=== PATIENT | male | born 1965 | race Caucasian/White ===

== ENCOUNTER → 2021-11-19 09:24 | Outpatient (BNVA) | payer OTHER, SELFPAY | PROVIDERS: Family Provider Family Medicine; PCP Family Medicine; Visit Provider Family Medicine | DX: E34.9 Endocrine disorder, unspecified (principal) | CPT/HCPCS: 82040; 84270; 84403 ==

== ENCOUNTER 2021-12-17 09:58 | Outpatient (CLI) | payer OTHER, SELFPAY ==
--- NOTE | 2021-12-17 10:15 | MR_ITS ---
WS: [id number] MRI RIGHT KNEE NONCONTRAST TECHNIQUE: Axial PD, coronal PD fat sat, coronal PD, sagittal PD, and sagittal PD fat-sat images obta ined. CLINICAL INFORMATION: knee pain s/p injury 2 years ago COMPARISON: None. FINDINGS: Distal quadriceps and patella tendon are intact. 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 This is worse involving the lateral patella facet. ACL and PCL are intact. Small amount increased signal involving the distal ACL fibers at the tibial insertion. Chronic thinning of the medial and l ateral meniscus. No acute appearing meniscal tears. Tiny suprapatellar effusion. Grade II chondromala dale medial and lateral joint compartments. No subchondral edema. Incidental enchondroma in the distal femoral shaft. Normal popliteal fossa. Normal medial and lateral patellar retinaculum. Normal medial and lateral collateral ligaments. Normal popliteus. MR/MR knee RT wo con* [id number] IMPRESSION: 1. Normal ACL and PCL. 2. 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 No acute appearing meniscal tears. 3. Advanced chondromalacia patella worse involving the lateral patella facet. Chondral fissuring with subchondral edema. 4. Normal medial and lateral collateral ligaments. Outbridge grading: grade IV: full-thickness cartilage loss with underlying bone reactive changes
== END 2021-12-17 09:59 | disposition home or self-care (01) ==
PROVIDERS: PCP Family Medicine; Visit Provider Family Medicine
DX: M25.561 Pain in right knee (principal); M22.41 Chondromalacia patellae, right knee
CPT/HCPCS: 73721

== ENCOUNTER → 2022-08-06 07:58 | Outpatient (BNVA) | payer OTHER, SELFPAY | PROVIDERS: PCP Family Medicine; Visit Provider Family Medicine | DX: Z00.00 Encounter for general adult medical examination without abnormal findings (principal); E34.9 Endocrine disorder, unspecified | CPT/HCPCS: 80053; 80061; 82040; 84270; 84403; 85025 ==

== ENCOUNTER → 2023-03-30 13:54 | Outpatient (BNVA) | payer OTHER, SELFPAY | PROVIDERS: PCP Family Medicine; Visit Provider Family Medicine | DX: R79.89 Other specified abnormal findings of blood chemistry (principal) | CPT/HCPCS: 82040; 84270; 84403 ==

== ENCOUNTER → 2024-03-29 13:53 | Outpatient (BNVA) | payer OTHER, SELFPAY | PROVIDERS: PCP Family Medicine; Visit Provider Family Medicine | DX: J11.1 Influenza due to unidentified influenza virus with other respiratory manifestations (principal) | CPT/HCPCS: 87400 ==

== ENCOUNTER → 2024-08-15 09:53 | Outpatient (BNVA) | payer OTHER, SELFPAY | PROVIDERS: PCP Family Medicine; Visit Provider Family Medicine | DX: Z00.00 Encounter for general adult medical examination without abnormal findings (principal); E34.9 Endocrine disorder, unspecified | CPT/HCPCS: 80053; 80061; 85025; G0103 ==